=== PATIENT | female | born 1965 | race Caucasian/White ===

== ENCOUNTER 2017-05-17 07:31 | Day surgery (SDC) | payer BC ==
[~2017-05-17 07:31] MED LIST: Lactated Ringers 1,000 ML IV SCH; Lidocaine 1%/Sod Bicarbonate in NS 8.4% 1 ML Syringe PRN; Sodium Chloride 0.9% 10 ML Syringe FLUSH PRN
[2017-05-17] MEDS ORDERED: Propofol 200 MG/20 ML SDV ONE ×2 (07:45→09:15)
[2017-05-17] MEDS ORDERED: fentaNYL 100 MCG/2 ML SDV ONE (07:45)
[2017-05-17] MEDS ORDERED: Midazolam 1 MG/ML 2 ML SDV ONE (07:45)
[2017-05-17] MEDS ORDERED: Lidocaine 1% 4 ML ONE (07:45)
--- NOTE | 2017-05-17 08:00 | PCM.PREANE ---
Preanesthetic Assessment - Anesthesia/Transfusion/Family Hx Anesthesia History: Prior Anesthesia Without Reaction Family History of Anesthesia Reaction: No Transfusion History: No Prior Transfusion(s) - Review of Systems General: No Symptoms Pulmonary: No Symptoms Cardiovascular: No Symptoms Gastrointestinal: Abdominal pain Neurological: No Symptoms Other: Reports: None - Physical Assessment NPO Status Date: 05/16/17 NPO Status Time: 00:00 Pulse: 80 O2 Sat by Pulse Oximetry: 94 Respiratory Rate: 16 Blood Pressure: 126/79 Temperature: 36.8 C Height: 1.73 m Weight: 101.264 kg ASA Class: 2 Mental Status: Alert & Oriented x3 Airway Class: Mallampati = 1 Dentition: Reports: Normal Dentition Thyro-Mental Finger Breadths: 3 Mouth Opening Finger Breadths: 3 ROM/Head Extension: Full Lungs: Clear to auscultation, Normal respiratory effort Cardiovascular: Regular Rate, Regular Rhythm, No Murmurs - Allergies Allergies/Adverse Reactions: Allergies Allergy/AdvReac Type Severity Reaction Status Date / Time animal dander Allergy Cannot Verified 05/16/17 15:05 Remember coffee (Coffea arabica) Allergy Cannot Verified 05/16/17 15:05 Remember latex Allergy Cannot Verified 05/16/17 15:05 Remember mold Allergy Cannot Verified 05/16/17 15:05 Remember perfume Allergy Cannot Verified 05/16/17 15:05 Remember pork derived (porcine) Allergy Cannot Verified 05/16/17 15:05 Remember tomato Allergy Cannot Verified 05/16/17 15:05 Remember dust Allergy Cannot Uncoded 05/16/17 15:05 Remember - Blood Blood Available: No Product(s) Available: None - Anesthesia Plan Pre-Op Medication Ordered: None - Acknowledgements Anesthesia Type Planned: MAC Pt an Appropriate Candidate for the Planned Anesthesia: Yes Alternatives and Risks of Anesthesia Discussed w Pt/Guardian: Yes Pt/Guardian Understands and Agrees with Anesthesia Plan: Yes PreAnesthesia Questionnaire HEENT History: Reports: Allergic Rhinitis Cardiovascular History: Reports: None Respiratory History: Reports: None Gastrointestinal History: Reports: GERD, Other (See Below) Other Gastrointestinal History: abdominal pain, dyspepsia, rectal bleeding [employer] History: Reports: None Musculoskeletal History: Reports: None Neurological History: Reports: None Psychiatric History: Reports: None Endocrine/Metabolic History: Reports: None Hematologic History: Reports: None Immunologic History: Reports: None Oncologic (Cancer) History: Reports: None Dermatologic History: Reports: None - Past Surgical History Head Surgeries/Procedures: Reports: None HEENT Surgical History: Reports: Naso-Sinus Surgery, Oral Surgery Cardiovascular Surgical History: Reports: None Respiratory Surgical History: Reports: None Female Surgical History: Reports: Section, Tubal Ligation Oncologic Surgical History: Reports: None Dermatological Surgical History: Reports: None - SUBSTANCE USE Smoking Status *Q: Former Smoker Tobacco Use Within Last Twelve Months: No Second Hand Smoke Exposure: No Days Per Week of Alcohol Use: 0 Number of Drinks Per Day: 0 Total Drinks Per Week: 0 Recreational Drug Use History: No - HOME MEDS Home Medications: Home Meds Ascorbic Acid [Vitamin C] 1,000 mg PO DAILY 05/16/17 [History] Calcium Carbonate [Calcium] 500 mg PO DAILY 05/16/17 [History] Cat's Claw 350 mg PO DAILY 05/16/17 [History] Cholecalciferol (Vitamin D3) [Vitamin D3] 2,000 unit PO DAILY 05/16/17 [History] Krill/Om-3/DHA/EPA/Phospho/Ast [Megared [place]-3 Krill Oil Sfgl] 1 cap PO DAILY 05/16/17 [History] Multivitamin [Multivitamins] 1 cap PO DAILY 05/16/17 [History] Omeprazole [Omeprazole] 20 mg PO DAILY 05/16/17 [History] Red Yeast Rice 1,200 mg PO DAILY 05/16/17 [History] - CURRENT (IN HOUSE) MEDS Current Meds: Current Medications Lactated Ringer's (Ringers, Lactated) 1,000 mls @ 125 mls/hr IV ASDIRECTED CHRIS Stop: 05/17/17 23:00 Lidocaine/Sodium Bicarbonate (Buffered Lidocaine 1% In Ns 8.4%) 0.25 ml .XX ONETIME PRN PRN Reason: Prior to IV Start Stop: 05/17/17 18:00 Sodium Chloride (Saline Flush) 10 ml FLUSH ASDIRECTED PRN PRN Reason: Keep Vein Open Stop: 05/17/17 18:00 Discontinued Medications Fentanyl (Sublimaze) Confirm Administered Dose 100 mcg .ROUTE .STK-MED ONE Stop: 05/17/17 07:46 Lidocaine HCl (Xylocaine-Mpf 1%) Confirm Administered Dose 4 mls @ as directed .ROUTE .STK-MED ONE Stop: 05/17/17 07:46 Midazolam HCl (Versed 1 Mg/Ml) Confirm Administered Dose 2 mg .ROUTE .STK-MED ONE Stop: 05/17/17 07:46 Propofol (Diprivan 20 Ml) Confirm Administered Dose 200 mg .ROUTE .STK-MED ONE Stop: 05/17/17 07:46
--- NOTE | 2017-05-17 09:30 | PCM.OPNOTE ---
- General Post-Op/Procedure Note Date of Surgery/Procedure: 05/17/17 Operative Procedure(s): 1. EGD with GE junction biopsies. 2. Colonoscopy with descending colon polypectomy Findings: 1. moderate sized hiatal hernia 2. esopohagitis with 3 small linear ulcers 3. internal hemorrhoids with anal tags; 3 column 4. sigmoid diverticulosis 5. colon polyp diminutive less than 5 mm in diameter Pre Op Diagnosis: 1. GERD refractory. 2. Bright red rectal bleeding Post-Op Diagnosis: 1. Moderately large sliding hiatal hernia. 2. Esophagitis with 3 small linear ulcers at the GE junction. 3. Multiple anal tags. 4. Three column prolapsing internal hemorrhoids. 5. Diminutive ascending colonic polyp. 6. Uncomplicated sigmoid diverticulosis Anesthesia Technique: MAC, Moderate sedation Primary Surgeon: Hadley Gore Pathology: 1. GE junction biopsies times 2 2. colon polypectomy EBL in mLs: 0 Complications: None Condition: Good Free Text/Narrative:: After adequate IV sedation was obtained with standard monitoring the patient was placed in the left lateral decubitus position. Through a bite-block lubricated upper endoscope was inserted in the esophagus and advanced to the stomach without difficulty. Air was given here followed by entry into the duodenum. The second and first ports were endoscopically normal. The antrum was unremarkable as well. In the retroflexed view I could see a moderately large sliding hiatal hernia. The fundus and cardiac regions were normal. The body of the stomach was normal. The rugal folds were normal with grossly normal gastric motility. The scope was withdrawn within the body of the hernia which had no gastritis and no retained food.. At the GE junction there were erythematous changes. There were 3 small linear ulcers which were shallow and at various states of healing. There was no stricturing. There was no endoscopic Hernandez's change. Biopsies were taken here for histologic review. I used cold forceps and performed 2 biopsies. The body of the esophagus was unremarkable. Photographs were obtained for the patient and for the record. Perianal inspection revealed multiple moderate-sized anal tags with slightly prolapsing 3 column internal hemorrhoids which were not bleeding. Digital rectal examination appreciated the hemorrhoids but no mass lesions. A lubricated colonoscope was inserted into the rectum and advanced to the cecum without difficulty. The bowel preparation was adequate. The cecum, right colon transverse, and descending colons were endoscopically remarkable for a small diminutive polyp in the descending colon which was 5 mm in diameter and I removed with cold forceps. The specimen was retrieved and the polypectomy site was hemostatic. The sigmoid had a few scattered uncomplicated diverticuli. The proximal rectum was unremarkable. In the retroflexed view the large hemorrhoids were seen. Photographs were taken for the patient and for the record. Air was removed as I finished the procedure which she tolerated well.
--- NOTE | 2017-05-17 09:32 | PCM48HPAN ---
Post Anesthesia Note - EVALUATION WITHIN 48HRS OF ANESTHETIC Vital Signs in Normal Range: Yes Patient Participated in Evaluation: Yes Respiratory Function Stable: Yes Airway Patent: Yes Cardiovascular Function Stable: Yes Hydration Status Stable: Yes Pain Control Satisfactory: Yes Nausea and Vomiting Control Satisfactory: Yes Mental Status Recovered: Yes
[2017-05-17 10:39] VITALS: BP 125/74
== END 2017-05-17 10:20 | disposition home or self-care (01) ==
LOC: JD.SDS 07:31
PROVIDERS: ATTEND Surgery
DX: K21.0 Gastro-esophageal reflux disease with esophagitis (principal); D12.4 Benign neoplasm of descending colon; K44.9 Diaphragmatic hernia without obstruction or gangrene; K25.9 Gastric ulcer, unspecified as acute or chronic, without hemorrhage or perforation; K57.30 Diverticulosis of large intestine without perforation or abscess without bleeding; K64.4 Residual hemorrhoidal skin tags; K64.8 Other hemorrhoids; Z91.040 Latex allergy status; Z91.018 Allergy to other foods; Z98.51 Tubal ligation status; Z98.890 Other specified postprocedural states
CPT/HCPCS: 43239; 45380; J2250; J3010; J7120; 00810; J2704